=== PATIENT | male | born 1990 | race Caucasian/White ===

== ENCOUNTER 2019-04-19 13:21 | Emergency (ER) | payer SELFPAY ==
[~2019-04-19] VITALS: Ht 188 cm; Wt 95.0 kg
[2019-04-19] MEDS ORDERED: ONDANSETRON HCL 4 MG/2 ML VIAL IVP ONE (13:45)
[2019-04-19] MEDS ORDERED: HYDROmorphone 2 MG/ML SYRINGE IVP ONE (13:45)
[2019-04-19] MEDS ORDERED: KETAMINE HCL 50 MG/ML 10 ML VIAL IVP ONE (14:15)
[2019-04-19] MEDS ORDERED: FentaNYL CITRATE-PF 100 MCG/2 ML VIAL ONE (14:39)
[2019-04-19] MEDS ORDERED: MIDAZOLAM HCL 5 MG/ML VIAL ONE (14:39)
[2019-04-19] MEDS ORDERED: MIDAZOLAM HCL 5 MG/ML VIAL IVP ONE (15:15)
[2019-04-19 15:45] VITALS: BP 176/104
== END 2019-04-19 16:05 | disposition home or self-care (01) ==
LOC: EMS 13:23
DX: M24.411 Recurrent dislocation, right shoulder (principal); I10 Essential (primary) hypertension; F17.210 Nicotine dependence, cigarettes, uncomplicated
CPT/HCPCS: 23650; 73030; 99285; 99406; J2250; J3490; J3010